=== PATIENT | female | born 1960 | race Caucasian/White ===

== ENCOUNTER 2019-10-06 08:00 | Outpatient (CLI) | payer OTHER | END 2019-10-06 23:59 | disposition home or self-care (01) | LOC: D.MAMMO 08:00 | PROVIDERS: ATTEND Family Medicine | DX: Z12.31 Encounter for screening mammogram for malignant neoplasm of breast (principal) ==

== ENCOUNTER 2019-10-20 09:36 | Day surgery (SDC) | payer OTHER ==
[~2019-10-20] VITALS: Ht 167.6 cm; Wt 88.6 kg
[2019-10-20 10:23] LABS: HEMATOCRIT 44.6 % (36.0-48.0); HEMOGLOBIN 15.2 g/dL (12-16); MCH 28.5 pg (26.0-34.0); MCHC 34.1 g/dL (31.0-37.0); MCV 83.7 fL (80.0-100.0); MEAN PLATELET VOLUME 9.4 fL (7.4-10.4); RBC 5.33 10x6/uL (4.00-5.40); RDW 13.9 % (11.5-14.5); WBC 6.5 10x3/uL (4.8-10.8)
[2019-10-20 10:32] LABS: CALC OSMOLALITY 278 mosm/kg (275-300); CALCIUM 9.6 mg/dL (8.5-10.1); CARBON DIOXIDE 28.5 mmol/L (21.0-32.0); CHLORIDE - SERUM 101 mmol/L (98-107); CREATININE - SERUM 0.7 mg/dL (0.6-1.3); GLUCOSE 130 mg/dL (74-106); POTASSIUM - SERUM 3.8 mmol/L (3.5-5.1); SODIUM 139 mmol/L (136-145); UREA NITROGEN 9 mg/dL (7-18); eGFR NON AFRICAN AMERICAN 90 mL/min (90-120)
[2019-10-20] MEDS ORDERED: TIROSINT100 MCG PO (10:44)
[2019-10-20] MEDS ORDERED: LOSARTAN-HCTZ1 EAC1 PO (10:45)
[2019-10-20] MEDS ORDERED: CELEXA20 MG PO (10:45)
[2019-10-20 10:53] VITALS: BP 139/86; Ht 167.6 cm; Wt 88.6 kg
--- NOTE | 2019-10-20 16:00 | NUR ---
PT DC INSTRUCTIONS REVIEWED AT THIS TIME, PT AND FAMILY VERBALIZE UNDERSTANING. PT IV REMOVED AT THIS TIME, INTACT, NO REDNESS OR SWELLING NOTED AT SITE.
--- NOTE | 2019-10-20 16:04 | NUR ---
PT LEAVING OPS AT THIS TIME VIA WC, NAD NOTED AT THIS TIME.
--- NOTE | 2019-10-22 16:40 | OP ---
PATIENT NAME: FELIPE SMITH MEDICAL RECORD: [id number] :56 LOCATION:D.OPS ADMISSION DATE: SURGEON: MAINOR KELLEY MD DATE OF OPERATION: 10/20/2019 PREOPERATIVE DIAGNOSIS: Fecal occult blood positivity. POSTOPERATIVE DIAGNOSES: 1. Fecal occult blood positivity. 2. 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 3. Two colonic polyps. 4. Patchy areas of colitis and proctitis, which appeared to be hemorrhagic. PROCEDURES: 1. Esophagogastroduodenoscopy with antral biopsies to rule out Helicobacter pylori. 2. Argon plasma coagulation ablation of gastric arteriovenous malformations. 3. Colonoscopy with biopsies in the area of colitis. 4. Hot biopsy forceps polypectomies times 2. 5. Stool cultures. SURGEON: Mainor Kelley MD MEDICAL CODER: None. BLOOD LOSS: Minimal. ANESTHESIA: IV sedation. COMPLICATIONS: None. ENDOSCOPIC COURSE: The patient was conveyed to the endoscopy suite electively on 10/20/2019. IV sedation was induced by the anesthesia staff. A bite block was inserted. A gastroscope was inserted into the mouth. It was advanced easily into the hypopharynx. The esophagus was easily intubated as were the stomach and duodenum. Upon withdrawal, retroflexed and angulus views were obtained. Antral biopsies were obtained. The arteriovenous malformations do not appear to have bled recently. Anyhow, I did ablate them thoroughly utilizing the argon plasma roller machine operator with the esophageal setting in the forced mode. The endoscope was then withdrawn under direct vision. The patient was turned 180 degrees and placed in the [place] position. A digital rectal examination was performed. A colonoscope was inserted through the anus. It was easily advanced to the cecum. The prep was adequate. I slowly withdrew the endoscope. I utilized normal imaging as well as narrow band imaging. Two small sessile polyps that appeared adenomatous were removed in their entireties. They were both less than a centimeter in diameter. There were 2 areas of patchy colitis and proctitis. This appeared to be hemorrhagic. These areas were biopsied utilizing the cold biopsy technique. Stool cultures were obtained as well. OPERATIVE REPORT [id number] FELIPE SMITH The endoscope was then withdrawn under direct vision. I will see the patient in my office in 2-3 weeks. I will be very interested to see the results of the biopsies and stool cultures. I am going to obtain a Prometheus test to check for inflammatory bowel disease. The ileum was normal when it was intubated. TRANSINT:[id number] Voice Confirmation ID: [id number] DOCUMENT ID: [id number] MAINOR KELLEY MD at 1640 CC: SYLVIA KAUFFMAN [id number] DICTATION DATE: 10/20/19 1522 VEHICLE BODY BUILDER: 10/20/19 1847 [facility] 10/20/19 [place] [id number] [place] [id number]
[2019-10-23 15:10] LABS: OVA + PARASITE EXAM Final report (())
== END 2019-10-20 16:04 | disposition home or self-care (01) ==
LOC: D.OPS 09:36
PROVIDERS: Anesthesiology; ATTEND Surgery
DX: R19.5 Other fecal abnormalities (principal); Q27.33 Arteriovenous malformation of digestive system vessel; K63.5 Polyp of colon; K52.9 Noninfective gastroenteritis and colitis, unspecified; K62.89 Other specified diseases of anus and rectum